=== PATIENT | male | born 1965 | race African-American/Black ===

== ENCOUNTER 2023-02-06 20:45 | Emergency (ER) | payer MEDICARE, MEDICAID ==
[~2023-02-06] VITALS: Ht 165.1 cm; Wt 105.0 kg
[2023-02-06 21:47] VITALS: BP 169/127; O2SAT 98
[2023-02-07] MEDS ORDERED: AMOX1TAB16 MT (00:08)
[2023-02-07 00:27] VITALS: PULSE 100; RESP 14; TEMP 98.5
== END 2023-02-07 00:28 | disposition home or self-care (01) ==
LOC: ER 21:40
DX: L03.011 Cellulitis of right finger (principal); I10 Essential (primary) hypertension
CPT/HCPCS: 10060; 99282; 99283